=== PATIENT | female | born 1980 | race Caucasian/White ===

== ENCOUNTER 2016-11-29 05:43 | Emergency (ER) | payer MEDICAID, OTHER ==
[~2016-11-29] VITALS: Ht 170.2 cm; Wt 76.2 kg
[2016-11-29 05:47] VITALS: BP 112/70
[2016-11-29] MEDS ORDERED: LIDOCAINE 1%, 20ML ONE (06:29)
== END 2016-11-29 07:36 | disposition left against medical advice (07) ==
LOC: ED 07:30
DX: L02.413 Cutaneous abscess of right upper limb (principal)
CPT/HCPCS: 10060; 99283

== ENCOUNTER 2017-04-18 02:52 | Emergency (ER) | payer SELFPAY ==
[~2017-04-18] VITALS: Ht 172.7 cm; Wt 75.6 kg
[2017-04-18 02:54] VITALS: BP 122/84
[2017-04-18] MEDS ORDERED: ACETAMINOPHEN 325 MG TABLET ONE (04:38)
[2017-04-18] MEDS ORDERED: ACETAMINOPHEN 325 MG TABLET PO ONE (05:00)
[2017-04-18] MEDS ORDERED: METHYLNALTREXONE 12 MG/0.6 ML SQ ONE (05:00)
== END 2017-04-18 05:29 | disposition home or self-care (01) ==
LOC: ED 03:24
DX: K59.00 Constipation, unspecified (principal); F11.10 Opioid abuse, uncomplicated
CPT/HCPCS: 71045; 74018; 96372

== ENCOUNTER 2017-04-23 18:53 | Emergency (ER) | payer SELFPAY ==
[~2017-04-23] VITALS: Ht 172.7 cm; Wt 73.0 kg
[2017-04-23 19:03] VITALS: BP 123/74
== END 2017-04-23 20:52 | disposition left against medical advice (07) ==
LOC: ED 20:46
DX: K59.00 Constipation, unspecified (principal)
CPT/HCPCS: 99281

== ENCOUNTER 2017-09-07 06:26 | Emergency (ER) | payer SELFPAY ==
[~2017-09-07] VITALS: Ht 170.2 cm; Wt 76.0 kg
[2017-09-07 06:27] VITALS: BP 115/72
[2017-09-07] MEDS ORDERED: CEFAZOLIN 1,000 MG ONE (06:50)
[2017-09-07] MEDS ORDERED: CEFAZOLIN 1,000 MG IM ONE (07:00)
== END 2017-09-07 08:31 | disposition home or self-care (01) ==
LOC: ED 07:54
DX: L03.115 Cellulitis of right lower limb (principal); F11.90 Opioid use, unspecified, uncomplicated; F17.210 Nicotine dependence, cigarettes, uncomplicated; Z72.89 Other problems related to lifestyle; Z91.14 Patient's other noncompliance with medication regimen
CPT/HCPCS: 93971; 96372; 99284; J0690

== ENCOUNTER 2017-10-05 10:18 | Emergency (ER) | payer SELFPAY ==
[~2017-10-05] VITALS: Ht 172.7 cm; Wt 77.0 kg
[2017-10-05 10:20] VITALS: BP 112/68
[2017-10-05] MEDS ORDERED: AZITHROMYCIN 500 MG TABLET PO ONE (11:00)
[2017-10-05] MEDS ORDERED: LIDOCAINE-MPF 1%, 2ML ONE (11:00)
[2017-10-05] MEDS ORDERED: AZITHROMYCIN 250 MG TABLET ONE (11:00)
[2017-10-05] MEDS ORDERED: CEFTRIAXONE 250 MG ONE (11:00)
[2017-10-05] MEDS ORDERED: CEFTRIAXONE 250 MG IM ONE (11:00)
== END 2017-10-05 11:50 | disposition home or self-care (01) ==
LOC: ED 11:44
DX: A54.9 Gonococcal infection, unspecified (principal); A74.9 Chlamydial infection, unspecified
CPT/HCPCS: 96372; 99283; J0696

== ENCOUNTER 2018-05-07 18:53 | Emergency (ER) | payer SELFPAY ==
[~2018-05-07] VITALS: Ht 172.7 cm; Wt 78.2 kg
--- NOTE | 2018-05-07 19:18 | NUR ---
PT PRESENTED WITH C/O PAIN, REDNESS, SWELLING B/L LOWER EXT, ABSCESSED TO BOTH LEGS X2 WKS, R/T INJECTION OF METH AND HEROIN. MONITORS APPLIED, SIDERAILS UP X2, CALL LIGHT WITHIN REACH. AWAITING ERP FOR EVAL AND ORDERS
[2018-05-07 19:19] VITALS: BP 127/69
[2018-05-07] MEDS ORDERED: CEFAZOLIN 1,000 MG IM ONE (19:30)
[2018-05-07] MEDS ORDERED: DIPH,PERTUSS(ACELL),TET VAC/PF 0.5 ML IM-VACC ONE (19:30)
[2018-05-07] MEDS ORDERED: CEFAZOLIN 1,000 MG ONE (19:40)
== END 2018-05-07 19:49 | disposition home or self-care (01) ==
LOC: ED 19:35
DX: L03.115 Cellulitis of right lower limb (principal); L02.416 Cutaneous abscess of left lower limb; L02.415 Cutaneous abscess of right lower limb
CPT/HCPCS: 96372; 99283; J0690

== ENCOUNTER 2018-10-02 22:33 | Emergency (ER) | payer SELFPAY ==
[~2018-10-02] VITALS: Ht 172.7 cm; Wt 75.7 kg
--- NOTE | 2018-10-03 00:03 | NUR ---
pt called to room from lobby
[2018-10-03] MEDS ORDERED: PINK LADY ENEMA 490 ML BOTTLE PR ONE (00:30)
[2018-10-03] MEDS ORDERED: METHYLNALTREXONE 12 MG/0.6 ML SYR SQ ONE ×2 (00:30→00:39)
--- NOTE | 2018-10-03 00:49 | NUR ---
PT HERE FOR CONSTIPATION. PT EATING WHEN RN MEDICATED PT. PT IN NAD. PT MEDICATED WITH RELISTOR. FRIEND AT BEDSIDE.
--- NOTE | 2018-10-03 00:56 | NUR ---
PT UP TO BATHROOM
--- NOTE | 2018-10-03 01:49 | NUR ---
PATIENT BACK IN THE ROOM. ATTEMPTED TO DC PATIENT STATES THAT SHE IS NOT READY YET.
[2018-10-03 02:00] VITALS: BP 108/71
--- NOTE | 2018-10-03 02:00 | NUR ---
PT VERBALIZED UNDERSTANDING OF DISCHARGE INSTRUCTIONS. PT NOT GETTING UP TO LEAVE. WILL CALL SECURITY TO ASSIST WITH DISCHARGE
--- NOTE | 2018-10-03 02:05 | NUR ---
PT ESCORTED OUT BY SECURITY.
== END 2018-10-03 02:08 | disposition home or self-care (01) ==
LOC: ED 10-03 02:02
DX: K59.00 Constipation, unspecified (principal); F11.10 Opioid abuse, uncomplicated
CPT/HCPCS: 74021; 96372; 99283

== ENCOUNTER 2018-10-06 20:35 | Inpatient (IN) | payer OTHER ==
[~2018-10-06] VITALS: Ht 172.7 cm; Wt 80.2 kg
--- NOTE | 2018-10-06 20:51 | NUR ---
PATIENT PRESENTS TO ED TODAY FOR RT HAND ERYTHEMA/SWELLING X 3 DAYS, PATIENT REPORTS LAST HEROIN USE TODAY AT 1000. AWAITING MD ORDERS, CALL LIGHT WITHIN REACH,
[2018-10-06] MEDS ORDERED: VANCOMYCIN 1,400 MG in SODIUM CHLORIDE 0.9% 250 ML IV ONE (21:00)
[2018-10-06] MEDS ORDERED: AMPICILLIN/SULBACTAM 3 GM in SODIUM CHLORIDE 0.9% 100 ML IV ONE (21:00)
[2018-10-06] MEDS ORDERED: SODIUM CHLORIDE FLUSH 10ML SYR IVF ONE (21:00)
[2018-10-06] MEDS ORDERED: VANCOMYCIN PER PHARMACY IV ONE (21:00)
[2018-10-06] MEDS ORDERED: PHARMACOKINETIC CONSULTATION MC ONE (21:00)
--- NOTE | 2018-10-06 21:08 | NUR ---
[place] in [facility] - 10/06/18 at 2122 by TAYLOR REPORT TO EMMANEUL RN, AND SIMON MORA.
--- NOTE | 2018-10-06 21:27 | NUR ---
Assumed care, report recieved. Pt awake, alert, resting on gurney watching tv. PIV attempt x 2, unsuccessful, lab at bedside for blood draw, US guided PIV to be attempted. VS WNL. Pain tolerable at this time.
[2018-10-06 21:49] LABS: BASOPHILS # (AUTO) 0.03 x10^3/uL (0-0.1); BASOPHILS % (AUTO) 0 % (0-1); EOSINOPHILS # (AUTO) 0.21 x10^3/uL (0-0.4); EOSINOPHILS % (AUTO) 2 % (1-7); LYMPHOCYTES # (AUTO) 1.74 x10^3/uL (1-3.4); LYMPHOCYTES % (AUTO) 14 % (22-44); MD NO; MEAN CORPUSCULAR HEMOGLOBIN 29.2 pg (27.0-34.8); MEAN CORPUSCULAR HGB CONC 32.7 g/dL (32.4-35.8); MEAN CORPUSCULAR VOLUME 89.3 fL (80-100); MONOCYTES # (AUTO) 0.99 x10^3/uL (0.2-0.8); MONOCYTES % (AUTO) 8 % (2-9); NEUTROPHILS # (AUTO) 9.55 x10^3/uL (1.8-6.8); NEUTROPHILS % (AUTO) 76 % (42-75); PLATELET COUNT 294 x10^3/uL (130-400); RED BLOOD COUNT 4.15 x10^6/uL (3.82-5.3); RED CELL DISTRIBUTION WIDTH 14.2 % (9.6-15.2)
[2018-10-06 21:58] LABS: ALBUMIN 2.8 g/dL (3.4-5.0); ANION GAP 6 mmol/L (5-15); CALCIUM 8.5 mg/dL (8.5-10.1); CHLORIDE 105 mmol/L (98-107); CREATININE 0.74 mg/dL (0.55-1.02)
--- NOTE | 2018-10-06 22:08 | NUR ---
IV abx infusing per MD orders, resting on gurney, watching TV, VS WNL, afebrile, no apparent distress noted, waiting on results.
[2018-10-06] MEDS ORDERED: OMNIPAQUE 350 MG/ML, 100ML BOTTLE ONE (22:55)
--- NOTE | 2018-10-06 23:30 | NUR ---
IV abx cont to infuse, toelrates well, VS remain stable, afebrile, watching tv, respirations even and unlabored, awaiting bed assignment.
[2018-10-06] MEDS ORDERED: SODIUM CHLORIDE 0.9% 1,000 ML IV SCH (23:36)
--- NOTE | 2018-10-06 23:47 | NUR ---
Report given to FLYNN Morales.
[2018-10-07] MEDS ORDERED: VANCOMYCIN PER PHARMACY MC PRN
[2018-10-07] MEDS ORDERED: ACETAMINOPHEN 325 MG TABLET PO PRN
[2018-10-07] MEDS: morphine SULFATE 10 MG/ML, 1ML IVPush PRN ×4 (00:17→06:47)
[2018-10-07 00:21] VITALS: BP 104/60
[2018-10-07] MEDS ORDERED: PHARMACOKINETIC MONITORING MC PRN (00:30)
[2018-10-07] MEDS ORDERED: AMPICILLIN/SULBACTAM 3 GM in SODIUM CHLORIDE 0.9% 100 ML IV SCH (04:00)
[2018-10-07 07:30] LABS: MEAN CORPUSCULAR HEMOGLOBIN 28.4 pg (27.0-34.8); MEAN CORPUSCULAR HGB CONC 32.7 g/dL (32.4-35.8); MEAN CORPUSCULAR VOLUME 86.7 fL (80-100); MEAN PLATELET VOLUME 6.8 fL (7.4-10.4); PLATELET COUNT 287 x10^3/uL (130-400); RED BLOOD COUNT 3.98 x10^6/uL (3.82-5.3); RED CELL DISTRIBUTION WIDTH 14.2 % (9.6-15.2)
[2018-10-07 07:40] LABS: ALANINE AMINOTRANSFERASE 27 U/L (12-78); ALBUMIN 2.7 g/dL (3.4-5.0); ANION GAP 8 mmol/L (5-15); CALCIUM 8.3 mg/dL (8.5-10.1); CHLORIDE 108 mmol/L (98-107); CREATININE 0.64 mg/dL (0.55-1.02)
[2018-10-07 07:42] LABS: ALKALINE PHOSPHATASE 91 U/L (45-117); BILIRUBIN,TOTAL 0.4 mg/dL (0.2-1.0); TOTAL PROTEIN 7.2 g/dL (6.4-8.2)
[2018-10-07 08:18] LABS: MD SCAN
[2018-10-07 08:19] LABS: BASOPHILS # (AUTO) 0.02 x10^3/uL (0-0.1); BASOPHILS % (AUTO) 0 % (0-1); EOSINOPHILS # (AUTO) 0.06 x10^3/uL (0-0.4); EOSINOPHILS % (AUTO) 1 % (1-7); LYMPHOCYTES # (AUTO) 1.54 x10^3/uL (1-3.4); LYMPHOCYTES % (AUTO) 14 % (22-44); MONOCYTES # (AUTO) 0.65 x10^3/uL (0.2-0.8); MONOCYTES % (AUTO) 6 % (2-9); NEUTROPHILS % (AUTO) 80 % (42-75)
[2018-10-07] MEDS ORDERED: VANCOMYCIN 1,500 MG in SODIUM CHLORIDE 0.9% 250 ML IV SCH (10:00)
== END 2018-10-07 09:38 | disposition left against medical advice (07) | DRG 872 ==
LOC: ED 22:22 → EDIP 23:22 → 3NW 10-07
PROVIDERS: ADMIT Family Medicine; ATTEND Family Medicine
DX: A41.9 Sepsis, unspecified organism (principal); L03.113 Cellulitis of right upper limb; L02.511 Cutaneous abscess of right hand; F11.10 Opioid abuse, uncomplicated; F15.10 Other stimulant abuse, uncomplicated; Z53.21 Procedure and treatment not carried out due to patient leaving prior to being seen by health care provider; F17.210 Nicotine dependence, cigarettes, uncomplicated; Z71.51 Drug abuse counseling and surveillance of drug abuser; Z91.14 Patient's other noncompliance with medication regimen
CPT/HCPCS: 36415; 80048; 80053; 82040; 83605; 84145; 85025; 87040; 96365; J0295; J3370; Q9967; J2270; J7030; J7050